=== PATIENT | female | born 1985 | race Asian ===

== ENCOUNTER 2016-04-01 23:57 | Inpatient (IN) | payer BC ==
[~2016-04-01] VITALS: Ht 160 cm; Wt 60.9 kg
[2016-04-02] MEDS ORDERED: LACTATED RINGER'S 1,000 ML IV SCH (00:16)
[2016-04-02] MEDS ORDERED: PRENAT PO (00:20)
[2016-04-02] MEDS ORDERED: LIDOCAINE 1% (MPF) 30 ML INJ ONE (00:21)
[2016-04-02] MEDS ORDERED: AMPICILLIN 2 GM/NS (PMX) 100 ML ONE (00:21)
[2016-04-02] MEDS ORDERED: IBUPROFEN 600 MG TAB PO PRN (00:30)
[2016-04-02] MEDS ORDERED: METHYLERGONOVINE 0.2 MG INJ IM PRN ×2 (00:30→02:00)
[2016-04-02] MEDS ORDERED: BUTORPHANOL 2 MG INJ IV PRN (00:30)
[2016-04-02] MEDS ORDERED: LIDOCAINE 1% (MPF) 30 ML INJ INJ PRN (00:30)
[2016-04-02] MEDS ORDERED: LACTATED RINGER'S 1,000 ML IV PRN (00:30)
[2016-04-02] MEDS ORDERED: OXYTOCIN 30 UNITS/LR 500 ML IV PRN ×2 (00:30→02:00)
[2016-04-02] MEDS ORDERED: CARBOPROST 250 MCG INJ IM PRN ×2 (00:30→02:00)
[2016-04-02] MEDS ORDERED: MISOPROSTOL 200 MCG TAB PR PRN ×2 (00:30→02:00)
[2016-04-02] MEDS ORDERED: OXYTOCIN 30 UNITS/LR 500 ML IV SCH ×2 (00:30)
[2016-04-02] MEDS ORDERED: AMPICILLIN 2 GM/NS (PMX) 100 ML IV ONE (00:30)
--- NOTE | 2016-04-02 00:30 | TRIAGE ---
OB Triage Datetime Report Generated by CPN: 04/02/2016 00:30 Datetime: 04/02/2016 00:24 Time of Arrival: 04/01/2016 23:55 Arrived By: Wheelchair Arrived From: Home Chief Complaint: w/ c/o ucs. Denies hx problems this . No PNR available Movement: Present Contractions: Regular Time Contractions Began: 04/01/2016 22:00 Contractions: q3 Rupture of Membranes: Denies Vaginal Bleeding: Normal Show Vaginal Discharge: Present Recent Sexual Intercouse: Denies Abdominal Trauma: Not Applicable Patient Complaints: Contractions Time Provider Notified: 04/02/2016 00:05 Provider Notified: Dr Jimenez
[2016-04-02 01:25] VITALS: Ht 160 cm; Wt 60.9 kg
--- NOTE | 2016-04-02 01:25 | HP ---
Date/Time of Note Date/Time of Note DATE: 04/02/16 TIME: 01:20 OB - History Hx of Present Free Text/Dictation 30 y.o edc 04/11/16 in active labor with ruptured membrane and derlivery was imminent admitted for expectant management had unevenful course Estimated Due Date: Apr 11, 2016 : 2 Para: 1 Spontaneous : 0 Therapeutic : 0 Care: Good Care Ultrasounds: Normal mid trimester US Obstetrical Complications: None Medical Complications: None Past Family/Social History * Past Medical, Surgical, Family and Obstetric Histories reviewed from chart. Blood Type: B+ Rubella: immune RPR/VDRL: Negative HBsAG: Negative OB Admission Exam Physical Exam HEENT: WNL Heart: Rhythm Normal Lungs: Clear, Equal Abdomen: WNL Extremities: Normal Reflexes: Normal Cervical Dilatation: 9cm Effacement: 100% Station: -2 Membranes: Ruptured Amniotic Fluid: Clear Heart Rate: 140's Accelerations: Accelerations Present Decelerations: No Decelerations Varibility: Moderate Contractions on Admission: < 5 Minutes Apart Intensity: Firm OB Assessment/Plan Reason for admission: active labor Other Assessment: IUP 38w5d in active labor Plan: Expectant Management BALDEV ANDREWS MD Apr 02, 2016 01:25
--- NOTE | 2016-04-02 01:29 | LDN ---
Date/Time of Note Date/Time of Note DATE: 04/02/16 TIME: 01: Delivery Summary Placenta Delivered: Spontaneously Meconium: none Perineum intact?: No Perineal laceration: 2 Perineal laceration repair: 2ND DEGREE REPAIRED WITH 00CH GUT Anesthesia type: Local Estimated blood loss: 300 Sponge & Needle done & correct: Yes All needle counts correct: Yes Any foreign bodies felt in the: No Problems: Infant Delivery Information Sex Sex: female Apgars 1 Minute: 9 5 Minute: 9 Suctioning Nose & mouth suctioned at oh: Yes Delee suction performed: No Umbilical Cord Umbilical cord with: 3 Vessels Cord presentations: no nuchal cord Cord Blood was obtained: Yes Mother & Baby Disposition Disposition Mom & Baby to Maternity; Good: Yes Mom transferred to: Other () Baby to NICU: No BALDEV ANDREWS MD Apr 02, 2016 01:29
[2016-04-02] MEDS ORDERED: OXYCODONE/ASPIRIN (4.88/325) TAB PO PRN (02:00)
[2016-04-02] MEDS ORDERED: LANOLIN 7 GM TUBE TOP PRN (02:00)
[2016-04-02] MEDS ORDERED: ZOLPIDEM 5 MG TAB PO PRN (02:00)
[2016-04-02] MEDS: OXYCODONE/ASPIRIN (4.88/325) TAB PO PRN ×2 (02:10→20:01)
[2016-04-02 03:25] VITALS: BP 104/54; RESP 18
[2016-04-02 03:32] LABS: INR 0.88; PARTIAL THROMBOPLASTIN TIME 22.9 Sec (25.0-35.0); PROTIME 11.9 Sec (12.2-14.2); PT RATIO 0.9
[2016-04-02 03:55] VITALS: BP 119/62; RESP 18
[2016-04-02] MEDS ORDERED: AMPICILLIN 1 GM/NS (PMX) 50 ML IV SCH (04:30)
[2016-04-02] MEDS: IBUPROFEN 600 MG TAB PO SCH ×4 (05:45→23:29)
[2016-04-02] MEDS: WITCH HAZEL/GLYCERIN PAD PR PRN (05:54)
[2016-04-02] MEDS: BENZOCAINE 20% 56 ML SPRAY TOP PRN (05:54)
[2016-04-02] MEDS ORDERED: OXYTOCIN 30 UNITS/LR 500 ML BAG IV ONE (07:00)
[2016-04-02 07:40] VITALS: BP 106/66; PULSE 76; RESP 16
[2016-04-02 08:56] LABS: BASOPHILS % 0.1 % (0.0-2.0); EOSINOPHILS % 0.1 % (0.0-7.0); HEMATOCRIT 36.7 % (37.0-47.0); HEMOGLOBIN 12.5 g/dl (12.0-16.0); LYMPHOCYTES # 0.8 10^3/ul (0.8-2.9); LYMPHOCYTES % 4.6 % (15.0-51.0); MEAN CORPUSCULAR HEMOGLOBIN 32.5 pg (29.0-33.0); MEAN CORPUSCULAR VOLUME 95.5 fl (82.0-101.0); MEAN PLATELET VOLUME 8.9 fl (7.4-10.4); MONOCYTE # 0.8 10^3/ul (0.3-0.9); MONOCYTES % 4.6 % (0.0-11.0); NEUTROPHIL # 15.6 10^3/ul (1.6-7.5); NEUTROPHILS % 90.6 % (39.0-77.0); PLATELET COUNT 171 10^3/UL (140-440); RED BLOOD COUNT 3.85 10^6/ul (4.20-5.40); RED CELL DISTRIBUTION WIDTH 14.5 % (11.5-14.5); UNCORRECTED WBC 17.2 10^3/ul (4.8-10.8); WHITE BLOOD COUNT 17.2 10^3/ul (4.8-10.8)
[2016-04-02 08:58] LABS: CONDITION 1; LH ANALYZER COMMENTS 1; SUSPECT 1
[2016-04-02] MEDS: SENNA/DOCUSATE NA (8.6MG/50MG) TAB PO SCH ×2 (09:17→21:21)
[2016-04-02 16:00] VITALS: BP 99/55; PULSE 86; RESP 18
[2016-04-02 20:01] VITALS: BP 110/56; PULSE 84; RESP 18
[2016-04-03] MEDS: OXYCODONE/ASPIRIN (4.88/325) TAB PO PRN (01:40)
[2016-04-03 04:15] VITALS: BP 106/70; PULSE 79; RESP 18
[2016-04-03] MEDS: IBUPROFEN 600 MG TAB PO SCH ×3 (05:48→17:30)
[2016-04-03 07:30] VITALS: BP 96/62; PULSE 76; RESP 16
[2016-04-03 07:44] LABS: BASOPHIL # 0.1 10^3/ul (0.0-0.1); BASOPHILS % 0.5 % (0.0-2.0); EOSINOPHILS # 0.2 10^3/ul (0.0-0.5); EOSINOPHILS % 2.4 % (0.0-7.0); HEMATOCRIT 31.7 % (37.0-47.0); LYMPHOCYTES % 20.3 % (15.0-51.0); MEAN CORPUSCULAR HEMOGLOBIN 32.9 pg (29.0-33.0); MEAN CORPUSCULAR HGB CONC 34.7 g/dl (32.0-37.0); MEAN CORPUSCULAR VOLUME 94.8 fl (82.0-101.0); MEAN PLATELET VOLUME 8.9 fl (7.4-10.4); MONOCYTE # 0.6 10^3/ul (0.3-0.9); MONOCYTES % 5.9 % (0.0-11.0); NEUTROPHILS % 70.9 % (39.0-77.0); PLATELET COUNT 149 10^3/UL (140-440); RED BLOOD COUNT 3.35 10^6/ul (4.20-5.40); RED CELL DISTRIBUTION WIDTH 14.6 % (11.5-14.5); UNCORRECTED WBC 9.9 10^3/ul (4.8-10.8); WHITE BLOOD COUNT 9.9 10^3/ul (4.8-10.8)
[2016-04-03 07:57] LABS: CONDITION 1; LH ANALYZER COMMENTS 1
[2016-04-03] MEDS: SENNA/DOCUSATE NA (8.6MG/50MG) TAB PO SCH ×2 (08:35→21:00)
--- NOTE | 2016-04-03 09:39 | PN ---
Date/Time of Note Date/Time of Note DATE: 04/03/16 TIME: 09:37 OB Subjective Subjective Subjective doing well no complaints OB Objective Objective Objective vss afebrile fundus firm lochia min calf neg for tenderness OB Assessment/Plan Other Assessment: stable post normal vaginal delivery Other plan: discharge home in am BALDEV ANDREWS MD Apr 03, 2016 09:39
[2016-04-03 16:00] VITALS: BP 99/62; PULSE 85; RESP 16
[2016-04-03 20:15] VITALS: BP 104/56; PULSE 82; RESP 18
[2016-04-04] MEDS: BENZOCAINE 20% 56 ML SPRAY TOP PRN (00:36)
[2016-04-04] MEDS: IBUPROFEN 600 MG TAB PO SCH ×3 (00:36→12:16)
[2016-04-04] MEDS: WITCH HAZEL/GLYCERIN PAD PR PRN (00:36)
[2016-04-04 05:49] VITALS: BP 92/51; RESP 18
[2016-04-04 08:30] VITALS: BP 99/51; PULSE 83; RESP 18
[2016-04-04] MEDS ORDERED: DIPHTH/TET/ACEL PERTUSS (ADULT) 0.5 ML VIAL IM* ONE (09:00)
[2016-04-04] MEDS: SENNA/DOCUSATE NA (8.6MG/50MG) TAB PO SCH (10:09)
--- NOTE | 2016-04-04 12:46 | PD.PPDC ---
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
--- NOTE | 2016-04-04 12:48 | DS ---
Date/Time of Note Date/Time of Note DATE: 04/04/16 TIME: 12:47 Obstetrical Discharge Record Final Diagnosis Final Diagnosis: Term delivered Vaginal Delivery Obstetrical Delivery: Spontaneous, Laceration, Repaired Complications Augmentation: No Induction: No Condition on Discharge Physical Assessment Last Vitals: vss afebrile Voiding: Yes Bowel Movement: Yes Breast: Soft, non-tender Fundus: Firm Episiotomy: ok Calf Tenderness: No Patient Condition: Stable BALDEV ANDREWS MD Apr 04, 2016 12:48
== END 2016-04-04 15:30 | disposition home or self-care (01) | DRG 775 ==
LOC: OBT 23:57 → L-D 04-02 → OBT 04-02 00:05 → L-D 04-02 00:06 → PP1 04-02 03:24
PROVIDERS: ADMIT Obstetrics & Gynecology; ATTEND Obstetrics & Gynecology
PROC: 10E0XZZ Delivery of Products of Conception, External Approach (ICD-10-PCS; principal; 2016-04-02)
PROC: 0KQM0ZZ Repair Perineum Muscle, Open Approach (ICD-10-PCS; 2016-04-02)
PROC: 3E0234Z Introduction of Serum, Toxoid and Vaccine into Muscle, Percutaneous Approach (ICD-10-PCS; 2016-04-04)
DX: O70.1 Second degree perineal laceration during delivery (principal); Z37.0 Single live birth; Z23 Encounter for immunization; Z3A.39 39 weeks gestation of pregnancy
CPT/HCPCS: 85025; 85610; 85730; 86592; 86900; 86901; 87340; 90715; G0463; J0290; J2590; J7120